=== PATIENT | female | born 1975 | race African-American/Black ===

== ENCOUNTER 2023-07-29 10:43 | Emergency (ER) | payer OTHER ==
[~2023-07-29] VITALS: Ht 167.6 cm; Wt 81.7 kg
[2023-07-29 10:46] VITALS: O2SAT 99
[2023-07-29] MEDS ORDERED: PROVENTIL HFA6.7 GM INH (11:32)
[2023-07-29] MEDS ORDERED: PROMETHAZINE-C473 ML PO ×2 (11:35→19:07)
[2023-07-29] MEDS ORDERED: PROMETHAZINE-D118 ML PO (19:10)
== END 2023-07-29 11:46 | disposition home or self-care (01) ==
LOC: FSED 10:47
DX: R05.9 Cough, unspecified (principal); U07.1 COVID-19; J98.01 Acute bronchospasm; E11.9 Type 2 diabetes mellitus without complications
CPT/HCPCS: 0223U; 81003; 81025; 83518; 87400; 99284